=== PATIENT | male | born 1970 | race Caucasian/White ===

== ENCOUNTER 2022-08-12 14:31 | Outpatient (CLI) | payer OTHER | END 2022-08-12 14:32 | disposition home or self-care (01) | LOC: CSHULT 14:31 | PROVIDERS: ATTEND Family Medicine | DX: R97.20 Elevated prostate specific antigen [PSA] (principal); N50.0 Atrophy of testis | CPT/HCPCS: 76870; 93976 ==

== ENCOUNTER 2023-09-01 10:45 | Outpatient (CLI) | payer OTHER ==
[2023-09-01] MEDS ORDERED: Magnevist 469MG/ML 20 ML VIAL ONE (14:49)
== END 2023-09-01 10:46 | disposition home or self-care (01) ==
LOC: CSHMRI 10:45
PROVIDERS: ATTEND Urology
DX: C61 Malignant neoplasm of prostate (principal)
CPT/HCPCS: 72197; A9579